=== PATIENT | female | born 1985 | race Caucasian/White ===

== ENCOUNTER 2019-03-21 08:41 | Emergency (ER) | payer MEDICARE, MEDICAID ==
[~2019-03-21] VITALS: Ht 177.8 cm; Wt 100.0 kg
[~2019-03-21 08:41] MED LIST: GLYB-97 PO; HYDR-2563 PO; LISI-222 PO; LORA0.5T PO; METF-951 PO; ONDA4TAB6 PO; OXCA300T39 PO; RES15C PO; SITA100T15 PO; TOP25T PO; VENL-190 PO; [UNRECOGNIZED DRUG - CODE] PO
[2019-03-21 08:45] VITALS: BP 103/79
[2019-03-21] MEDS ORDERED: LORazepam 2 mg/ml vial IM ONE (09:25)
== END 2019-03-21 10:40 | disposition home or self-care (01) ==
LOC: ER 08:42
DX: F41.9 Anxiety disorder, unspecified (principal); F15.10 Other stimulant abuse, uncomplicated; I10 Essential (primary) hypertension; E11.9 Type 2 diabetes mellitus without complications; F31.9 Bipolar disorder, unspecified; Z86.14 Personal history of Methicillin resistant Staphylococcus aureus infection; Z60.2 Problems related to living alone; Z88.0 Allergy status to penicillin; Z79.899 Other long term (current) drug therapy
CPT/HCPCS: 93005; 96372; 99284; J2060; 99283

== ENCOUNTER 2019-06-05 18:36 | Emergency (ER) | payer MEDICARE, MEDICAID ==
[~2019-06-05] VITALS: Ht 177.8 cm; Wt 100.0 kg
[2019-06-05] MEDS ORDERED: TETanus/Pertussis (Acell)/Diphther VAC/PF (Tdap-Adult) 0.5ml syringe IMVAC ONE (21:05)
[2019-06-05] MEDS ORDERED: vancomycin/NS 1 GM ADD-VANTAGE 250 ML IV ONE (21:05)
[2019-06-05] MEDS ORDERED: CIPR-113 PO (21:18)
[2019-06-05] MEDS ORDERED: CEPH-572 PO (21:18)
[2019-06-05 22:30] VITALS: BP 125/74
[2019-06-06] MEDS ORDERED: ciprofloxacin lact 400MG/200ML 200 ML IV SCH (08:00)
== END 2019-06-06 00:54 | disposition home or self-care (01) ==
LOC: ER 18:36
DX: S91.331A Puncture wound without foreign body, right foot, initial encounter (principal); E11.42 Type 2 diabetes mellitus with diabetic polyneuropathy; I10 Essential (primary) hypertension; F41.9 Anxiety disorder, unspecified; F31.9 Bipolar disorder, unspecified; F15.90 Other stimulant use, unspecified, uncomplicated; Z86.14 Personal history of Methicillin resistant Staphylococcus aureus infection; Z88.0 Allergy status to penicillin; Z79.2 Long term (current) use of antibiotics; Z79.899 Other long term (current) drug therapy; W22.8XXA Striking against or struck by other objects, initial encounter; Y93.89 Activity, other specified; Y92.59 Other trade areas as the place of occurrence of the external cause; Y99.8 Other external cause status
CPT/HCPCS: 73630; 90471; 90715; 96365; 96368; 99284; J0744; J3370

== ENCOUNTER 2020-09-06 08:48 | Emergency (ER) | payer MEDICARE, MEDICAID ==
[~2020-09-06] VITALS: Ht 177.8 cm; Wt 105.0 kg
[2020-09-06] MEDS ORDERED: sucralfate 1gm/10ml UD suspension PO STA (09:52)
[2020-09-06] MEDS ORDERED: LIDOcaine Viscous 15ml cup MM ONE (09:55)
[2020-09-06] MEDS ORDERED: famotidine 20mg tablet PO ONE (09:55)
[2020-09-06] MEDS ORDERED: mag hydrox/Alum hydrox/simeth 30ml oral suspension PO ONE (09:55)
[2020-09-06 10:26] LABS: BASOPHILS # (AUTO) 0.1 X10'3 (0-0.2); EOSINOPHILS # (AUTO) 0.2 X10'3 (0-0.9); HEMATOCRIT 38.8 % (35.0-45.0); LYMPHOCYTES # (AUTO) 2.5 X10'3 (1.1-4.8); MEAN CORPUSCULAR HEMOGLOBIN 27.4 PG (27.0-31.0); MEAN CORPUSCULAR HGB CONC 33.6 g/dL (33.0-36.5); MEAN CORPUSCULAR VOLUME 81.7 FL (78-98); MEAN PLATELET VOLUME 7.7 FL (7.4-10.4); MONOCYTES # (AUTO) 0.7 X10'3 (0-0.9); MONOCYTES % (AUTO) 7.9 % (2-12); NEUTROPHILS # (AUTO) 4.9 X10'3 (1.8-7.7); NEUTROPHILS % (AUTO) 59.1 % (42-75); PLATELET COUNT 311 X10'3 (140-440); RED BLOOD COUNT 4.75 X10'6 (4.20-5.60); WHITE BLOOD COUNT 8.3 X10'3 (4.5-11.0)
[2020-09-06 10:39] LABS: ALANINE AMINOTRANSFERASE 27 U/L (12-78); ALBUMIN 3.6 G/DL (3.4-5.0); ALBUMIN/GLOBULIN RATIO 0.9 (1.1-1.5); ALKALINE PHOSPHATASE 82 IU/L (46-116); ANION GAP 9 (8-16); ASPARTATE AMINO TRANSFERASE 15 U/L (10-37); BILIRUBIN,TOTAL 0.3 MG/DL (0.1-1.0); BLOOD UREA NITROGEN 9 MG/DL (7-18); BUN/CREATININE RATIO 12.3 (6.6-38.0); CHLORIDE 102 MMOL/L (99-107); CREATININE 0.73 MG/DL (0.40-0.90); GLUCOSE 333 MG/DL (70-104); POTASSIUM 4.2 MMOL/L (3.5-5.1); SODIUM 138 MMOL/L (135-145); TOTAL CARBON DIOXIDE 27.5 MMOL/L (24-32); TOTAL PROTEIN 7.4 G/DL (6.4-8.2); eGFR 90 ML/MIN
[2020-09-06] MEDS ORDERED: CEPH250T PO (10:42)
[2020-09-06] MEDS ORDERED: DOXY100C76 PO (10:42)
[2020-09-06 11:01] VITALS: BP 121/88
== END 2020-09-06 11:03 | disposition home or self-care (01) ==
LOC: ER 08:48
DX: S91.302A Unspecified open wound, left foot, initial encounter (principal); L03.116 Cellulitis of left lower limb; E11.65 Type 2 diabetes mellitus with hyperglycemia; E11.621 Type 2 diabetes mellitus with foot ulcer; L97.529 Non-pressure chronic ulcer of other part of left foot with unspecified severity; E11.42 Type 2 diabetes mellitus with diabetic polyneuropathy; I10 Essential (primary) hypertension; F15.90 Other stimulant use, unspecified, uncomplicated; E11.40 Type 2 diabetes mellitus with diabetic neuropathy, unspecified; Z86.14 Personal history of Methicillin resistant Staphylococcus aureus infection; Z88.1 Allergy status to other antibiotic agents; Z79.2 Long term (current) use of antibiotics; Z79.899 Other long term (current) drug therapy; X58.XXXA Exposure to other specified factors, initial encounter; Y93.89 Activity, other specified; Y92.89 Other specified places as the place of occurrence of the external cause; Y99.8 Other external cause status
CPT/HCPCS: 36415; 73630; 80053; 82948; 85025; 85651; 99284

== ENCOUNTER 2023-08-09 19:34 | Emergency (ER) | payer MEDICARE, MEDICAID ==
[~2023-08-09] VITALS: Ht 175.3 cm; Wt 110.3 kg
[~2023-08-09 19:34] MED LIST changes: +METF-1157 PO; -METF-951 PO
[2023-08-09 19:40] VITALS: BP 123/75; PULSE 84; TEMP 98; O2SAT 95
[2023-08-09 20:56] LABS: BASOPHILS # (AUTO) 0.1 X10'3 (0-0.2); BASOPHILS % (AUTO) 0.8 % (0-1); EOSINOPHILS # (AUTO) 0.2 X10'3 (0-0.9); EOSINOPHILS % (AUTO) 2.5 % (0-6); HEMATOCRIT 38.8 % (35.0-45.0); HEMOGLOBIN 12.9 g/dl (12.0-16.0); LYMPHOCYTES # (AUTO) 3.1 X10'3 (1.1-4.8); LYMPHOCYTES % (AUTO) 31.3 % (21-51); MEAN CORPUSCULAR HEMOGLOBIN 26.6 PG (27.0-31.0); MEAN CORPUSCULAR HGB CONC 33.3 g/dL (33.0-36.5); MEAN CORPUSCULAR VOLUME 79.8 FL (78-98); MONOCYTES # (AUTO) 0.7 X10'3 (0-0.9); NEUTROPHILS # (AUTO) 5.8 X10'3 (1.8-7.7); NEUTROPHILS % (AUTO) 58.4 % (42-75); PLATELET COUNT 283 X10'3 (140-440); RED BLOOD COUNT 4.86 X10'6 (4.20-5.60); RED CELL DISTRIBUTION WIDTH 14.1 % (11.5-14.5)
[2023-08-09 21:11] LABS: ALANINE AMINOTRANSFERASE 20 U/L (12-78); ALBUMIN 3.7 G/DL (3.4-5.0); ALBUMIN/GLOBULIN RATIO 0.9 (1.1-1.5); ALKALINE PHOSPHATASE 69 IU/L (46-116); ANION GAP 6 (8-16); ASPARTATE AMINO TRANSFERASE 10 U/L (10-37); BILIRUBIN,TOTAL 0.3 MG/DL (0.1-1.0); BLOOD UREA NITROGEN 18 MG/DL (7-18); BUN/CREATININE RATIO 23.7 (10.0-20.0); CALCIUM 8.8 MG/DL (8.5-10.1); CHLORIDE 105 MMOL/L (99-107); CREATININE 0.76 MG/DL (0.40-0.90); GLUCOSE 151 MG/DL (70-104); LIPASE 48 U/L (16-77); POTASSIUM 3.9 MMOL/L (3.5-5.1); SODIUM 140 MMOL/L (135-145); TOTAL PROTEIN 7.7 G/DL (6.4-8.2); eCRCL 104 ML/MIN; eGFR 85 ML/MIN
[2023-08-09 22:44] LABS: HCG SERUM QL NEGATIVE
[2023-08-09 22:48] VITALS: RESP 16
[2023-08-09] MEDS: ketorolac tromethamine 15mg/ml inj. IV ONE (22:48)
[2023-08-09] MEDS: ondansetron/PF 4mg/2ml inj IV ONE (22:48)
[2023-08-09] MEDS: ketorolac trometh. 30mg/ml inj. IV ONE (22:52)
[2023-08-10 00:34] LABS: BILIRUBIN,URINE NEGATIVE (Neg); CLARITY,URINE SLIGHTLY CLOUDY (Clear); COLOR,URINE YELLOW (Yellow); GLUCOSE, URINE NEGATIVE (Neg); KETONES,URINE TRACE mg/dl (Neg); LEUKOCYTE ESTERASE ,URINE NEGATIVE (Neg); NITRITES, URINE NEGATIVE (Neg); OCCULT BLOOD,URINE LARGE (Neg); PH,URINE 5.5 (4.8-8.0); PROTEIN,URINE NEGATIVE (Neg); UROBILINOGEN,URINE 0.2 E.U/dL (0.2-1.0)
[2023-08-10 00:40] LABS: UA COLLECTION TYPE CLN CATCH MIDSTREAM
[2023-08-10 00:43] LABS: WBC,URINE 0-4 /HPF (0-4)
[2023-08-10 00:44] LABS: BACTERIA,URINE 1+ /HPF (Neg); RBC,URINE TNTC /HPF (0-2); RENAL CELLS, URINE FEW /HPF; SQUAMOUS EPITHELIAL CELL,UR FEW /LPF (FEW); TRANSITIONAL EPI CELLS,URINE FEW /HPF
[2023-08-10 00:45] LABS: CAL OXALATE CRYSTALS 2+ /HPF (NEGATIVE); URIC ACID CRYSTALS 2+ /HPF (NEGATIVE)
[2023-08-10 00:50] LABS: URINE AMPHETAMINE SCREEN NEGATIVE (Neg); URINE BARBITUATE SCREEN NEGATIVE (Neg); URINE BENZODIAZEPINES SCREEN NEGATIVE (Neg); URINE CANNABINOID SCREEN NEGATIVE (Neg); URINE COCAINE SCREEN NEGATIVE (Neg); URINE METHADONE SCREEN NEGATIVE (Neg); URINE OPIATE SCREEN NEGATIVE (Neg); URINE PHENCYCLIDINE SCREEN NEGATIVE (Neg)
[2023-08-10] MEDS: HYDROcodone/acetaminophen 5mg/325mg tablet PO ONE (00:52)
[2023-08-10] MEDS ORDERED: HYDR-3965 PO ×2 (01:25→01:27)
[2023-08-10] MEDS ORDERED: ONDA8TAB13 PO (01:25)
[2023-08-10] MEDS ORDERED: FLO0.4C PO (01:25)
== END 2023-08-10 01:47 | disposition home or self-care (01) ==
LOC: ER 19:34
DX: N20.0 Calculus of kidney (principal); E11.42 Type 2 diabetes mellitus with diabetic polyneuropathy; I10 Essential (primary) hypertension; F32.9 Major depressive disorder, single episode, unspecified; F41.9 Anxiety disorder, unspecified; Z60.2 Problems related to living alone; F15.90 Other stimulant use, unspecified, uncomplicated; Z88.1 Allergy status to other antibiotic agents
CPT/HCPCS: 36415; 74176; 80053; 80305; 81001; 83690; 84703; 85025; 96374; 96375; 99285; J1885; J2405

== ENCOUNTER 2025-02-15 10:27 | Emergency (ER) | payer MEDICARE, MEDICAID ==
[~2025-02-15] VITALS: Ht 177.8 cm; Wt 93.3 kg
[~2025-02-15 10:27] MED LIST changes: +ONDA-245 PO
[2025-02-15] MEDS ORDERED: CEPH-585 PO (11:42)
--- NOTE | 2025-02-15 11:42 | Physician Documentation ---
History of Present Illness ~ Chief Complaint: Wound Re-Check Stated Complaint: POST OP COMPLICATIONS Time Seen by MD: 11:23 OK to notify your PCP?: Yes Primary Medical Doctor: Leon Burrell walk in Source: patient Mode of Arrival: POV Exam Limitations: no limitations HPI 39-year-old female who is eight days post breast augmentation with Dr. Brooks and she go presenting due to concern about the incision line under her left breast opening up. She reports the Steri-Strips fell off a few days ago. She attempted to call the surgeon today however states that since it is a weekend she was unable to get a hold of anybody. She denies fever, chills, odor from the wound. Tetanus within 5 years?: Yes Medication Reconciliation Allergies: Coded Allergies: amoxicillin (Verified Allergy, Unknown, itching, 02/15/25) Scheduled Gabapentin (NEURONTIN capsule), 300 MG PO TID, (Reported) Glyburide* (Glyburide*), 5 MG PO DAILY, (Reported) Hydroxyzine Hcl (Hydroxyzine Hcl), 50 MG PO TID, (Reported) Lisinopril* (Lisinopril*), 5 MG PO DAILY, (Reported) Metformin Hcl* (Glucophage*), 850 MG PO TID, (Reported) Ondansetron 8mg ODT (Ondansetron Odt), 1 TAB PO Q6H Ondansetron 8mg ODT (Ondansetron Odt), 1 TAB PO Q6H Ondansetron Hcl (Zofran), 1 TABLET PO Q6H Oxcarbazepine (Oxcarbazepine), 300 MG PO BID, (Reported) Sitagliptin Phosphate* (Januvia*), 100 MG PO DAILY, (Reported) Temazepam* (Restoril*), 15 MG PO HS, (Reported) Topiramate* (Topamax*), 50 MG PO BID, (Reported) Venlafaxine HCl (Effexor Xr), 75 MG PO DAILY, (Reported) Scheduled PRN Lorazepam* (Ativan*), 0.5 MG PO BID PRN for anxiety, (Reported) Past Medical History Past Medical History: Peripheral Neuropathy, Hypertension, Diabetes, MRSA Abscess, Anxiety, Bipolar, Depression Past Surgical History: noncontributory Alcohol Use: None Drug Use: methamphetamine Lives with: Alone Lives In: Home Occupation: employed Review of Systems All Other Systems at this time: Reviewed and Negative Physical Exam Vital Signs: Temperature: 97.6, Source: Temporal, Heart Rate: 85, Respiratory Rate: 20, BP: 110/69, Pulse Oximetry: 99, Weight: 93.300 Oxygen Flow Rate: 0 Physical Exam General Appearance: Alert, WD/WN. NAD. HEENT: NCAT, PERRL, EOMI. Neck: Supple, trachea midline. Lungs: Breathing unlabored Extremities: Normal inspection. No edema. Skin: Warm/dry, normal color. Breast: Surgical incisions covered with steri strips around areola and under left and right breast. Steri strips under left breast are not present and the incision has yellow-white thick fluid inside the area where the incision has opened up, no odor, no surrounding erythema. Neurological: Alert and oriented x4, normal gait. Psychiatric: Affect congruent with mood. Progress Results/Orders Results/Orders Orders - NAVA MAGANA Cult (Aer) Routine C&S+Gram St (02/15/25 11:31) Vital Signs 02/15/25 10:34 Temp 97.6 Pulse 85 Resp 20 B/P (MAP) 110/69 Pulse Ox 99 O2 Flow Rate 0 Medical Decision Making Additional information obtaine: N/A Findings n/a Differential Dx:Considerations: Include: Abscess, Cellulitis, Dressing change, Healing wound Departure Time of Disposition: 11:38 Disposition: 01 HOME / SELF CARE / HOMELESS Impression: Primary Impression: Wound, surgical, infected Condition: Stable Discharge Instructions: Wound Care, Adult Additional Instructions: f/u with your surgeon on Monday so that he is aware that your wound has opened up under your left breast and it may be infected we took of a culture of the drainage from the wound start antibiotic Referrals: NO PRIMARY CARE PROVIDER (PCP) Prescriptions Cephalexin*Monohydrate* (Keflex*) 500 Mg Capsule 1 CAP PO QID for 10 Days, #40 CAP Prov: NAVA MAGANA 02/15/25 Education Educated: Patient Educated regarding: diagnosis, treatment, need for follow up Signature Scribe Signature: x Attestation: NAVA Ram Feb 15, 2025 11:42
[2025-02-15 12:05] VITALS: BP 115/79; PULSE 87; RESP 16; TEMP 97.6; O2SAT 98
== END 2025-02-15 12:07 | disposition home or self-care (01) ==
LOC: ER 10:27
DX: T81.41XA Infection following a procedure, superficial incisional surgical site, initial encounter (principal); E11.42 Type 2 diabetes mellitus with diabetic polyneuropathy; F31.9 Bipolar disorder, unspecified; F41.9 Anxiety disorder, unspecified; F15.90 Other stimulant use, unspecified, uncomplicated; I10 Essential (primary) hypertension; Z86.14 Personal history of Methicillin resistant Staphylococcus aureus infection; Z88.1 Allergy status to other antibiotic agents; Z79.899 Other long term (current) drug therapy; Z79.84 Long term (current) use of oral hypoglycemic drugs; Z60.2 Problems related to living alone
CPT/HCPCS: 87070; 87077; 87186; 99283